=== PATIENT | female | born 1985 | race Caucasian/White ===

== ENCOUNTER 2018-03-08 06:02 | Emergency (ER) | payer OTHER ==
[2018-03-08] MEDS: ACETAMINOPHEN 325 MG TAB PO (06:57)
[2018-03-08 07:08] LABS: URINE BLOOD (Dip) POC Trace-lysed (NEGATIVE); URINE GLUCOSE (Dip) POC Negative (NEGATIVE); URINE KETONES (Dip) POC Negative (NEGATIVE); URINE LEUKOCYTE EST (Dip) POC Trace (NEGATIVE); URINE NITRITE (Dip) POC Negative (NEGATIVE); URINE TOTAL PROTEIN POC Negative (NEGATIVE)
[2018-03-08 07:08] LABS: URINE PH (Dip) POC 5.5 (5.0-8.5)
== END 2018-03-08 07:57 | disposition home or self-care (01) ==
LOC: FTE 06:02
DX: R05 Cough (principal); J34.89 Other specified disorders of nose and nasal sinuses; R09.81 Nasal congestion
CPT/HCPCS: 71045; 81003; 81025; 99283-25

== ENCOUNTER 2018-04-25 07:27 | Emergency (ER) | payer OTHER ==
[2018-04-25] MEDS: ALBUTEROL 0.083% (NEB) 2.5 MG/3 ML AMP HHN (08:11)
[2018-04-25] MEDS: predniSONE 20 MG TAB PO (08:15)
[2018-04-25] MEDS: DIPHENHYDRAMINE 50 MG CAP PO (08:51)
== END 2018-04-25 08:53 | disposition home or self-care (01) ==
LOC: FTE 07:27
DX: J06.9 Acute upper respiratory infection, unspecified (principal); R06.2 Wheezing
CPT/HCPCS: 94664; 99283-25